=== PATIENT | female | born 1990 | race Two or more races ===

== ENCOUNTER 2017-01-01 12:40 | Emergency (ER) | payer MEDICAID ==
[2017-01-01 13:28] LABS: % IMMATURE GRANULYOCYTES 0.3 % (0.0-1.1); ABSOLUTE IMMATURE GRANULOCYTES 0.03 10^3/uL (0.00-0.10); ADD DIFF? NO; ADD MORPH? NO; ADD SCAN? NO; ATYPICAL LYMPHOCYTE FLAG 0 (0-99); FRAGMENT RBC FLAG 0 (0-99); HEMATOCRIT 42.8 % (38.0-47.0); HEMOGLOBIN 14.4 g/dL (12.6-16.3); LEFT SHIFT FLG 0 (0-99); LIPEMIA HEMOLYSIS FLAG 80 (0-99); MEAN CELL HEMOGLOBIN 30.8 pg (27.9-34.1); MEAN CELL HEMOGLOBIN CONCENTR. 33.6 g/dL (32.4-36.7); MEAN CELL VOLUME 91.5 fL (81.5-99.8); MEAN PLATELET VOLUME 11.2 fL (8.7-11.7); PLATELET CLUMPS FLAG 20 (0-99); PLATELET COUNT 224 10^3/uL (150-400); RED BLOOD CELL COUNT 4.68 10^6/uL (4.18-5.33); RED CELL DISTRIBUTION WIDTH 12.4 % (11.5-15.2)
[2017-01-01 13:43] LABS: ANION GAP 21 mEq/L (8-16); CARBON DIOXIDE 19 mEq/l (22-31); CHLORIDE 102 mEq/L (97-110); CREATININE 0.7 mg/dL (0.6-1.0); ETHANOL SERUM < 10 mg/dL (0-10); GLOMERULAR FILTRATION RATE > 60; GLUCOSE 108 mg/dL (70-100); POTASSIUM 3.9 mEq/L (3.5-5.2); SODIUM 142 mEq/L (134-144)
--- NOTE | 2017-01-01 13:56 | EDPHY ---
H & P Smoking Status: Never smoked Time Seen by Provider: 01/01/17 13:15 HPI/ROS: CHIEF COMPLAINT: Schizophrenia, M1 hold HISTORY OF PRESENT ILLNESS: 26-year-old female presents to the emergency department by ambulance on M1 hold. The patient has a history of schizophrenia and apparently was running into traffic today. She required Versed because she was combative with EMS. Apparently the patient takes Invega injections. She skipped 2 or 3 of the scheduled injections. She denies substance abuse or alcohol. Currently she has no physical complaints. She denies chest pain or difficulty breathing. Denies abdominal pain. REVIEW OF SYSTEMS: Constitutional: No fever, no chills. Eyes: No double or blurry vision. ENT: No sore throat. Respiratory: No cough, no shortness of breath. Cardiac: No chest pain. Gastrointestinal: No abdominal pain, vomiting or diarrhea. Genitourinary: No dysuria. Musculoskeletal: No neck or back pain. Skin: No rashes. Neurological: No headache. (Mague Andrade) Past Medical/Surgical History: Schizophrenia (Mague Andrade) Social History: Single (Mague Andrade) Physical Exam: General Appearance: Alert, no distress. Mother at bedside. Eyes: Pupils equal and round. Extraocular motions are all intact. ENT: Mouth: Mucous membranes moist. Respiratory: No wheezing, rhonchi, or rales, lungs are clear to auscultation. Cardiovascular: Regular rate and rhythm. Gastrointestinal: Abdomen is soft and nontender, no masses, no rebound or guarding, bowel sounds normal. Neurological: Alert and oriented x 3, cranial nerves II through XII grossly intact Skin: Warm and dry, no rashes. Musculoskeletal: Nontender to palpate along the cervical, thoracic or lumbar spine. Neck is supple. Extremities: Full range of motion and no peripheral edema. Psychiatric: Patient is oriented X 3, there is no agitation. (Mague Andrade) Constitutional: Initial Vital Signs Temperature (C) 37 C 01/01/17 12:47 Heart Rate 118 H 01/01/17 12:47 Respiratory Rate 14 01/01/17 12:47 Blood Pressure 101/57 L 01/01/17 12:47 O2 Sat (%) 94 01/01/17 12:47 O2 Delivery Mode Room Air Allergies/Adverse Reactions: No Known Allergies Allergy (Verified 01/01/17 12:46) Home Medications: Medication Instructions Recorded INVEGA 01/01/17 Medical Decision Making ED Course/Re-evaluation: 26-year-old female presents to the emergency department on M1 hold. The patient has been medically cleared and will be evaluated by mental health. ( Mague Andrade) 12:50 a.m.- The patient has remained stable during my shift. She has been accepted to [facility] by Dr. Quiñones. I have completed the EMTALA form and we plan to transfer her there. (Maggie Motta) 11pm--signed over to Dr. Motta at shift change. Pending inpt psych dispo. (Kelsey Dewitt) Differential Diagnosis: Depression including functional and major depression, situational depression, medication side effect, drugs and alcohol abuse. (Mague Andrade) Other Provider: PHYSICIAN DOCUMENTATION: The patient was evaluated and managed by the Physician [employer] Tender and myself. I have reviewed the chart and agree with the findings and plan of care as documented. In addition, I examined the patient myself at 1550. History confirmed as schizophrenia, no medications recently, no medical complaints. Physical findings as follows: Patient has delayed response to questions, but will answer. Awaiting psychiatric evaluation at this time 1800: Per psychiatric evaluation, will try to get the patient admitted to ATU for stabilization. We tried to get her 78 mg long-acting Invega shot but we do not have on pharmacy formulary here. Oral Zyprexa 5 mg given instead. Signed out to Dr. Dewitt with placement pending. I am the secondary supervising physician. (Alex Falcon) Care Turn Over: Care will be turned over to Dr. Alex Falcon at 4:15 a.m. for disposition and plan. (Mague Andrade) - Data Points Laboratory Results: Laboratory Results 01/01/17 13:20 01/01/17 13:20 Medications Given: Discontinued Medications Olanzapine (Zyprexa Zydis) 5 mg PO EDNOW ONE Stop: 01/01/17 18:02 Last Admin: 01/01/17 18:15 Dose: Not Given Olanzapine (Zyprexa Zydis) 5 mg PO EDNOW ONE Stop: 01/01/17 19:20 Last Admin: 01/01/17 19:19 Dose: 5 mg Olanzapine (Zyprexa Im Injection) 10 mg IM EDNOW ONE Stop: 01/02/17 02:51 Last Admin: 01/02/17 02:51 Dose: 10 mg Departure - Departure Disposition: Other Psych, Not [facility] Clinical Impression: Schizophrenia Qualifiers: Schizophrenia type: unspecified Qualified Code(s): F20.9 - Schizophrenia, unspecified Condition: Good Referrals: NONE *PRIMARY CARE P,. [Primary Care Provider] - As per Instructions
[2017-01-01] MEDS ORDERED: OLANZapine DISINTEGR 5 MG TAB PO ONE ×2 (18:01→19:19)
[2017-01-01] MEDS ORDERED: OLANZapine DISINTEGR 5 MG TAB ONE (19:07)
[2017-01-02] MEDS ORDERED: OLANZapine 10 MG/2 ML VIAL IM ONE ×2 (02:45→02:50)
[2017-01-02 02:56] VITALS: BP 138/70; PULSE 68; RESP 16; TEMP 98.6; O2SAT 98
== END 2017-01-02 03:00 ==
LOC: EDUNIT#
DX: F20.9 Schizophrenia, unspecified (principal)
CPT/HCPCS: 80305; G0480